=== PATIENT | female | born 1960 | race Caucasian/White ===

== ENCOUNTER → 2023-03-10 09:27 | Outpatient (BNVA) | payer OTHER, SELFPAY | PROVIDERS: Family Provider Family Medicine; PCP Family Medicine; Visit Provider Emergency Medicine | DX: R68.89 Other general symptoms and signs (principal); R41.0 Disorientation, unspecified; R32 Unspecified urinary incontinence; M79.3 Panniculitis, unspecified; R05.1 Acute cough; Z20.822 Contact with and (suspected) exposure to COVID-19 | CPT/HCPCS: 81000; 87086; 87400; 87426 ==